=== PATIENT | female | born 1955 | race Caucasian/White ===

== ENCOUNTER 2018-08-11 16:56 | Emergency (ER) | payer OTHER ==
[2018-08-11 17:37] LABS: WHITE BLOOD COUNT 26.8 10^3/ul (4.8-10.8)
[2018-08-11 17:37] LABS: ABNORMAL IP MESSAGE 1; HEMATOCRIT 48.7 % (37.0-47.0); HEMOGLOBIN 15.3 g/dl (12.0-16.0); MEAN CORPUSCULAR HEMOGLOBIN 27.1 pg (29.0-33.0); MEAN CORPUSCULAR HGB CONC 31.4 g/dl (32.0-37.0); MEAN CORPUSCULAR VOLUME 86.3 fl (82.0-101.0); MEAN PLATELET VOLUME 11.7 fl (7.4-10.4); PLATELET COUNT 259 10^3/UL (140-415); RED BLOOD COUNT 5.64 10^6/ul (4.20-5.40); RED CELL DISTRIBUTION WIDTH 13.2 % (11.5-14.5)
[2018-08-11 17:42] LABS: ADD MAN DIFF? YES; POSITIVE DIFF @See below
[2018-08-11 17:45] LABS: ADD UMIC YES; UR ASCORBIC ACID NEGATIVE (NEGATIVE); UR BILIRUBIN (Dip) NEGATIVE (NEGATIVE); UR BLOOD (Dip) 2+ mg/dL (NEGATIVE); UR CLARITY SLIGHTLY CLOUDY (CLEAR); UR COLOR STRAW (YELLOW); UR GLUCOSE (Dip) 3+ mg/dL (NEGATIVE); UR KETONES (Dip) TRACE mg/dL (NEGATIVE); UR LEUKOCYTE ESTERASE (Dip) NEGATIVE Leu/ul (NEGATIVE); UR MUCUS FEW /HPF (NONE SEEN); UR NITRITE (Dip) NEGATIVE (NEGATIVE); UR RBC 0 /HPF (0-5); UR SPECIFIC GRAVITY (Dip) 1.028 (1.003-1.030); UR TOTAL PROTEIN (Dip) 2+ mg/dl (NEGATIVE); UR UROBILINOGEN (Dip) NEGATIVE (NEGATIVE); UR WBC 1 /HPF (0-5)
[2018-08-11] MEDS: FUROSEMIDE 40 MG INJ IV (17:49)
[2018-08-11] MEDS: NITROGLYCERIN 50 MG/D5W (PMX) 250 ML IV (17:49)
[2018-08-11 17:56] LABS: INR 1.07; PT RATIO 1.1
[2018-08-11 17:57] LABS: PARTIAL THROMBOPLASTIN TIME 25.8 Sec (23.0-35.0)
[2018-08-11 17:58] LABS: ALANINE AMINOTRANSFERASE 69 IU/L (13-69); ALBUMIN 4.5 g/dl (3.3-4.9); ALBUMIN/GLOBULIN RATIO 1.25; ALKALINE PHOSPHATASE 107 IU/L (42-121); ANION GAP 25 (5-13); BILIRUBIN,INDIRECT 0.8 mg/dl (0-1.1); BILIRUBIN,TOTAL 0.8 mg/dl (0.2-1.3); BLOOD UREA NITROGEN 21 mg/dl (7-20); CALCIUM 9.7 mg/dl (8.4-10.2); CARBON DIOXIDE 18 mmol/L (21-31); CHLORIDE 98 mmol/L (97-110); CREATININE 1.18 mg/dl (0.44-1.00); Estimated GFR 46 mL/min (>60); POTASSIUM 3.9 mmol/L (3.5-5.1); SODIUM 141 mmol/L (135-144); TOTAL PROTEIN 8.1 g/dl (6.1-8.1)
[2018-08-11] MEDS: FUROSEMIDE 20 MG INJ IV (18:00)
[2018-08-11 18:09] LABS: B-TYPE NATRIURETIC PEPTIDE 27200 PG/ML (0-125)
[2018-08-11 18:16] LABS: ASPARTATE AMINO TRANSFERASE 419 IU/L (15-46)
[2018-08-11 18:18] LABS: GLUCOSE 608 mg/dl (70-220)
[2018-08-11 18:19] LABS: LACTIC ACID 12.6 mmol/L (0.5-2.0)
[2018-08-11 19:21] LABS: Allen Test N; Blood Gas IEPAP 20/5; Blood Gas PS 15; MODE MASK - BIPAP; MetHgb Venous 1.3 %; Sample Type Blood venous; Site VENOUS LINE; Venous COHb 0.3 %; Venous Fraction OxyHgb 35.6 %; Venous Oxygen Sat 36.2 mmHG (55.0-75.0); Venous Total Hemglobin 15.1 g/dl
[2018-08-11] MEDS ORDERED: INSULIN REGULAR, HUMAN 100 UNIT/1 ML 3ML VIAL SC (19:30)
[2018-08-11] MEDS: INSULIN REGULAR, HUMAN 100 UNIT/1 ML 3ML VIAL SC (19:57)
[2018-08-11 20:08] LABS: LACTIC ACID 6.8 mmol/L (0.5-2.0)
[2018-08-11 20:29] LABS: BAND NEUTROPHILS % (M) 4 % (0-4); LYMPHOCYTES #M 1.8 10^3/ul (0.8-2.9); LYMPHOCYTES % (M) 7 % (15-51); MONOCYTES % (M) 4 % (0-11); PLATELET ESTIMATE NORMAL; SEGMENTED NEUTROPHILS (M) % 85 % (39-77); SMUDGE%M 2 % (0-0)
== END 2018-08-11 21:00 | disposition short-term general hospital (02) ==
LOC: E/R 16:56
DX: I50.21 Acute systolic (congestive) heart failure (principal); R06.03 Acute respiratory distress; I21.4 Non-ST elevation (NSTEMI) myocardial infarction; I10 Essential (primary) hypertension; E11.9 Type 2 diabetes mellitus without complications; Z79.82 Long term (current) use of aspirin; Z79.84 Long term (current) use of oral hypoglycemic drugs; Z86.73 Personal history of transient ischemic attack (TIA), and cerebral infarction without residual deficits
CPT/HCPCS: 36415; 71045; 80053; 81001; 82803; 82962; 83605; 83880; 84484; 85025; 85610; 85730; 87040; 87400; 93005; 94660; 96372; 96374; 99291-25